=== PATIENT | female | born 1960 | race Caucasian/White ===

== ENCOUNTER 2019-03-01 19:10 | Inpatient (IN) ==
[2019-03-01 19:42] LABS: Basophils % 0.5 % (0.0-0.8); Eosinophils # 0.2 10*3/uL (0.0-0.87); Eosinophils % 3.3 % (0.00-10.9); Hematocrit 36.3 VOL% (35.7-47.0); Hemoglobin 11.4 GM/DL (12.0-16.0); Immature Granulocytes % 0.6 %; Immature Granulocytes Absolute 0.04 #; Lymphocytes # 1.8 10*3/uL (1.4-4.0); Lymphocytes % 27.5 % (21.3-54.2); Mean Corpuscular HGB Conc 31.4 GM/DL (32-36); Mean Corpuscular Volume 82.9 FL (87-102); Mean Platelet Volume 11.2 FL (9.6-12.0); Monocytes % 8.7 % (1.7-12.7); Neutrophils % 59.4 % (38.7-73.9); Platelet Count 252 T/CUMM (130-400); Red Blood Count 4.38 MC/CUMM (3.8-5.5); Red Cell Distribution Width 13.3 % (9.3-17.3); White Blood Count 6.6 T/CUMM (4-12)
[2019-03-01] MEDS ORDERED: ALBUTEROL/IPRATROPIUM 3 ML NEB RESP TX STA (19:43)
[2019-03-01] MEDS ORDERED: methylPREDNISolone SOD SUC 125 MG/2 ML VIAL IV STA (19:43)
[2019-03-01] MEDS ORDERED: ONDANSETRON 4 MG/2 ML VIAL IV STA (19:43)
[2019-03-01] MEDS ORDERED: ORPHENADRINE 60 MG/2 ML VIAL IV STA (19:43)
[2019-03-01 19:50] LABS: INR 1.1; PT Patient Result 12.4 SECS (9.6-12.2); Partial Thromboplastin Time 26.1 SECS (20.8-36.0)
[2019-03-01 19:51] LABS: Alanine Aminotransferase 32 U/L (13-56); Albumin 3.8 G/DL (3.4-5.0); Alkaline Phosphatase 142 U/L (45-117); Aspartate Amino Transferase 39 U/L (0-37); Bilirubin,Total < 0.39 MG/DL (0.2-1.0); Blood Urea Nitrogen 15 MG/DL (7-18); Calcium 9.1 MG/DL (8.5-10.1); Estimated Glom Filtration Rate 38 ML/MIN; Glucose 106 MG/DL (74-106); Osmolality,Calculated 270.1 MOS/KG (273-304); Total Protein 7.4 G/DL (6.4-8.3)
[2019-03-01 20:08] LABS: Troponin I 0.026 NG/ML (0.00-0.045)
[2019-03-01] MEDS ORDERED: ALBUTEROL/IPRATROPIUM 3 ML NEB RESP TX PRN (21:54)
[2019-03-01] MEDS: ENOXAPARIN 40 MG/0.4 ML SYRINGE SUBCUT SCH (23:54)
[2019-03-02 02:24] LABS: Bilirubin,Urine Negative (Negative); Blood, Urine NEGATIVE (Negative); Glucose,Urine (UA) Negative (Negative); Ketones,Urine Negative (Negative); Nitrite,Urine Negative (Negative); Protein,Urine Negative; RBC,Urine <1 /HPF (0-4); Squamous Epithelial Cell,Urine Occasional /HPF (0-10); Urine Color Yellow (Yellow); Urine Specific Gravity 1.005 (1.001-1.035); WBC,Urine <1 /HPF (0-6)
[2019-03-02 02:26] LABS: Apearance,Urine Clear (Clear); Urine Urobilinogen 0.2 EU/DL (0.2-1.0)
[2019-03-02 02:27] LABS: Barbiturates Screen,Urine Negative (Negative); Benzodiazepines Screen,Urine Positive (Negative); Cannabinoid Screen,Urine Negative (Negative); Opiate Screen,Urine Negative (Negative); Phencyclidine Screen,Urine Negative (Negative)
[2019-03-02 04:05] LABS: ABG Base Excess -2.7 MMOL/L (-2.5-2.5); ABG HCO3 21.4 MMOL/L (20-26); ABG Oxygen Saturation 53.6 % (95-100); ABG PH 7.359 (7.35-7.45); ABG TCO2 20.5 MMOL/L (23-27); Allen Test Positive
[2019-03-02 04:08] LABS: ABG PO2 31.6 MM HG (80-95)
[2019-03-02 04:20] LABS: Basophils % 0.1 % (0.0-0.8); Eosinophils % 0.2 % (0.00-10.9); Hematocrit 34.4 VOL% (35.7-47.0); Hemoglobin 10.7 GM/DL (12.0-16.0); Immature Granulocytes % 0.7 %; Immature Granulocytes Absolute 0.06 #; Lymphocytes # 1.4 10*3/uL (1.4-4.0); Lymphocytes % 17.4 % (21.3-54.2); Mean Corpuscular HGB Conc 31.1 GM/DL (32-36); Mean Corpuscular Volume 83.7 FL (87-102); Mean Platelet Volume 11.1 FL (9.6-12.0); Monocytes % 1.1 % (1.7-12.7); Neutrophils % 80.5 % (38.7-73.9); Platelet Count 257 T/CUMM (130-400); Red Blood Count 4.11 MC/CUMM (3.8-5.5); Red Cell Distribution Width 13.4 % (9.3-17.3); White Blood Count 8.1 T/CUMM (4-12)
[2019-03-02 04:44] LABS: Osmolality,Calculated 272.2 MOS/KG (273-304)
[2019-03-02 05:21] LABS: ABG Base Excess -4.1 MMOL/L (-2.5-2.5); ABG Oxygen Saturation 95.9 % (95-100); ABG PCO2 32.6 MM HG (35-48); ABG PH 7.395 (7.35-7.45); ABG PO2 80.5 MM HG (80-95); ABG TCO2 17.9 MMOL/L (23-27); Allen Test Positive; Pt O2 Delivery Device Other
[2019-03-02] MEDS: ONDANSETRON 4 MG/2 ML VIAL IV PRN (06:42)
[2019-03-02] MEDS: DIAZEPAM 5 MG TABLET PO PRN ×3 (06:47→21:28)
[2019-03-02 07:52] LABS: Allen Test Positive; Pt O2 Delivery Device Other
[2019-03-02 07:53] LABS: ABG Base Excess -3.2 MMOL/L (-2.5-2.5); ABG HCO3 20.7 MMOL/L (20-26); ABG Oxygen Saturation 95.1 % (95-100); ABG PCO2 33.2 MM HG (35-48); ABG PH 7.413 (7.35-7.45); ABG PO2 76.9 MM HG (80-95); ABG TCO2 21.7 MMOL/L (23-27)
[2019-03-02] MEDS ORDERED: predniSONE 20 MG TABLET PO SCH (09:00)
[2019-03-02] MEDS: PANTOPRAZOLE 40 MG TABLET PO SCH (09:14)
[2019-03-02] MEDS ORDERED: ALBUTEROL/IPRATROPIUM 3 ML NEB RESP TX PRN (09:18)
[2019-03-02] MEDS ORDERED: FUROSEMIDE 40 MG/4 ML VIAL IV ONE (09:30)
[2019-03-02] MEDS: CARISOPRODOL 350 MG TABLET PO SCH ×2 (10:02→22:02)
[2019-03-02] MEDS: LEVOFLOXACIN 750 MG TABLET PO SCH (10:43)
[2019-03-02] MEDS: MONTELUKAST 10 MG TABLET PO SCH (10:43)
[2019-03-02] MEDS: methylPREDNISolone SOD SUC 40 MG/1 ML VIAL IV SCH ×3 (10:44→21:26)
[2019-03-02] MEDS: BUDESONIDE 0.5 MG/2 ML NEB RESP TX SCH ×2 (11:32→19:22)
[2019-03-02] MEDS: ALBUTEROL/IPRATROPIUM 3 ML NEB RESP TX SCH ×4 (11:32→23:40)
[2019-03-02] MEDS: ARFORMOTEROL 15 MCG/2 ML NEB RESP TX SCH ×2 (11:42→19:22)
[2019-03-02] MEDS: SUBOXONE FILM SL SCH (11:56)
[2019-03-02] MEDS ORDERED: SUBOXONE FILM SL SCH (12:00)
[2019-03-02] MEDS: ACETAMINOPHEN 325 MG TABLET PO PRN (14:29)
[2019-03-02] MEDS: ENOXAPARIN 40 MG/0.4 ML SYRINGE SUBCUT SCH (21:29)
[2019-03-03] MEDS: ALBUTEROL/IPRATROPIUM 3 ML NEB RESP TX SCH ×6 (03:14→23:51)
[2019-03-03] MEDS: methylPREDNISolone SOD SUC 40 MG/1 ML VIAL IV SCH (03:16)
[2019-03-03] MEDS: BUDESONIDE 0.5 MG/2 ML NEB RESP TX SCH ×2 (07:09→19:53)
[2019-03-03] MEDS: ARFORMOTEROL 15 MCG/2 ML NEB RESP TX SCH ×2 (07:21→19:52)
[2019-03-03] MEDS: PANTOPRAZOLE 40 MG TABLET PO SCH (08:48)
[2019-03-03] MEDS: SUBOXONE FILM SL SCH (08:48)
[2019-03-03] MEDS: DIAZEPAM 5 MG TABLET PO PRN ×3 (08:49→20:22)
[2019-03-03] MEDS: MONTELUKAST 10 MG TABLET PO SCH (08:49)
[2019-03-03] MEDS ORDERED: methylPREDNISolone SOD SUC 40 MG/1 ML VIAL IV SCH (09:00)
[2019-03-03] MEDS: CARISOPRODOL 350 MG TABLET PO SCH ×2 (10:15→21:05)
[2019-03-03] MEDS: predniSONE 20 MG TABLET PO SCH (11:45)
[2019-03-03] MEDS ORDERED: DILTIAZEM 30 MG TABLET PO SCH (13:38)
[2019-03-03] MEDS: ASPIRIN EC 81 MG TABLET PO SCH (14:14)
[2019-03-03] MEDS: ACETAMINOPHEN 325 MG TABLET PO PRN (14:14)
[2019-03-03] MEDS: amLODIPine 2.5 MG TABLET PO SCH (14:14)
[2019-03-03 16:27] LABS: Troponin I 0.078 NG/ML (0.00-0.045)
[2019-03-03] MEDS: ENOXAPARIN 40 MG/0.4 ML SYRINGE SUBCUT SCH (20:23)
[2019-03-03] MEDS: SUBOXONE FILM SL PRN (21:31)
[2019-03-04] MEDS: ACETAMINOPHEN 325 MG TABLET PO PRN (02:07)
[2019-03-04] MEDS: ALBUTEROL/IPRATROPIUM 3 ML NEB RESP TX SCH ×6 (03:44→23:48)
[2019-03-04 05:45] LABS: Basophils % 0.1 % (0.0-0.8); Immature Granulocytes % 1.2 %; Immature Granulocytes Absolute 0.22 #; Lymphocytes % 10.4 % (21.3-54.2); Mean Corpuscular HGB Conc 31.3 GM/DL (32-36); Mean Corpuscular Volume 83.8 FL (87-102); Mean Platelet Volume 11.8 FL (9.6-12.0); Monocytes % 6.3 % (1.7-12.7); Platelet Count 244 T/CUMM (130-400); Red Blood Count 3.82 MC/CUMM (3.8-5.5); Red Cell Distribution Width 13.8 % (9.3-17.3); White Blood Count 18.8 T/CUMM (4-12)
[2019-03-04 06:04] LABS: Calcium 8.9 MG/DL (8.5-10.1); Osmolality,Calculated 274.1 MOS/KG (273-304)
[2019-03-04 06:12] LABS: Risk Ratio 4.68
[2019-03-04] MEDS: ARFORMOTEROL 15 MCG/2 ML NEB RESP TX SCH ×2 (07:28→19:27)
[2019-03-04] MEDS: BUDESONIDE 0.5 MG/2 ML NEB RESP TX SCH ×2 (07:28→19:17)
[2019-03-04] MEDS ORDERED: methylPREDNISolone SOD SUC 40 MG/1 ML VIAL IV SCH (09:00)
[2019-03-04] MEDS: PANTOPRAZOLE 40 MG TABLET PO SCH (09:23)
[2019-03-04] MEDS: ASPIRIN EC 81 MG TABLET PO SCH (09:23)
[2019-03-04] MEDS: LEVOFLOXACIN 750 MG TABLET PO SCH (09:23)
[2019-03-04] MEDS: amLODIPine 2.5 MG TABLET PO SCH (09:23)
[2019-03-04] MEDS: MONTELUKAST 10 MG TABLET PO SCH (09:23)
[2019-03-04] MEDS: predniSONE 20 MG TABLET PO SCH (09:23)
[2019-03-04] MEDS: CARISOPRODOL 350 MG TABLET PO SCH ×2 (09:24→22:31)
[2019-03-04] MEDS: DIAZEPAM 5 MG TABLET PO PRN ×2 (09:29→17:20)
[2019-03-04] MEDS: SUBOXONE FILM SL SCH (09:30)
[2019-03-04 11:34] LABS: % Iron Saturation 3.2 % (18-50)
[2019-03-04 11:44] LABS: Folate 3.5 NG/ML (5.4-24.0)
[2019-03-04] MEDS: ONDANSETRON 4 MG/2 ML VIAL IV PRN (13:48)
[2019-03-04] MEDS: SUBOXONE FILM SL PRN (22:23)
[2019-03-04] MEDS: ENOXAPARIN 40 MG/0.4 ML SYRINGE SUBCUT SCH (22:25)
[2019-03-05] MEDS: DIAZEPAM 5 MG TABLET PO PRN ×3 (04:07→19:24)
[2019-03-05] MEDS: ALBUTEROL/IPRATROPIUM 3 ML NEB RESP TX SCH ×2 (04:29→07:54)
[2019-03-05] MEDS: BUDESONIDE 0.5 MG/2 ML NEB RESP TX SCH ×2 (07:54→19:37)
[2019-03-05] MEDS: ARFORMOTEROL 15 MCG/2 ML NEB RESP TX SCH ×2 (07:54→19:34)
[2019-03-05] MEDS: amLODIPine 2.5 MG TABLET PO SCH (08:57)
[2019-03-05] MEDS: ASPIRIN EC 81 MG TABLET PO SCH (08:57)
[2019-03-05] MEDS: MONTELUKAST 10 MG TABLET PO SCH (08:57)
[2019-03-05] MEDS: predniSONE 20 MG TABLET PO SCH (08:57)
[2019-03-05] MEDS: PANTOPRAZOLE 40 MG TABLET PO SCH (08:57)
[2019-03-05] MEDS: CARISOPRODOL 350 MG TABLET PO SCH ×2 (09:10→20:19)
[2019-03-05] MEDS: SUBOXONE FILM SL SCH (09:25)
[2019-03-05] MEDS: ACETAMINOPHEN 325 MG TABLET PO PRN (09:32)
[2019-03-05] MEDS: ONDANSETRON 4 MG/2 ML VIAL IV PRN ×2 (09:44→19:22)
[2019-03-05] MEDS: FLUTICASONE 50 MCG NASAL SPRAY 16 GM BOTTLE BOTH NARES SCH ×2 (13:06→20:59)
[2019-03-05] MEDS: POLYETHYLENE GLYCOL POWDER 17 GM PACK PO SCH (13:07)
[2019-03-05] MEDS: DOCUSATE SODIUM 100 MG CAPSULE PO SCH ×2 (13:07→20:59)
[2019-03-05] MEDS: FLUoxetine 20 MG CAPSULE PO SCH (15:05)
[2019-03-05] MEDS ORDERED: ALBUTEROL/IPRATROPIUM 3 ML NEB RESP TX PRN (17:35)
[2019-03-05] MEDS: ENOXAPARIN 40 MG/0.4 ML SYRINGE SUBCUT SCH (20:59)
[2019-03-05] MEDS: SUBOXONE FILM SL PRN (20:59)
[2019-03-06] MEDS: ONDANSETRON 4 MG/2 ML VIAL IV PRN (06:36)
[2019-03-06] MEDS: ARFORMOTEROL 15 MCG/2 ML NEB RESP TX SCH (07:28)
[2019-03-06] MEDS: BUDESONIDE 0.5 MG/2 ML NEB RESP TX SCH (07:28)
[2019-03-06 07:39] VITALS: BP 105/55
[2019-03-06 07:52] LABS: Basophils % 0.2 % (0.0-0.8); Eosinophils # 0.1 10*3/uL (0.0-0.87); Eosinophils % 0.5 % (0.00-10.9); Hematocrit 36.7 VOL% (35.7-47.0); Hemoglobin 11.1 GM/DL (12.0-16.0); Immature Granulocytes % 1.2 %; Immature Granulocytes Absolute 0.15 #; Lymphocytes # 4.2 10*3/uL (1.4-4.0); Lymphocytes % 33.7 % (21.3-54.2); Mean Corpuscular HGB Conc 30.2 GM/DL (32-36); Mean Corpuscular Volume 84.6 FL (87-102); Mean Platelet Volume 11.4 FL (9.6-12.0); Neutrophils % 56.4 % (38.7-73.9); Platelet Count 238 T/CUMM (130-400); Red Blood Count 4.34 MC/CUMM (3.8-5.5); Red Cell Distribution Width 14.1 % (9.3-17.3); White Blood Count 12.6 T/CUMM (4-12)
[2019-03-06 08:08] LABS: Calcium 8.6 MG/DL (8.5-10.1); Osmolality,Calculated 276.7 MOS/KG (273-304)
[2019-03-06] MEDS: DIAZEPAM 5 MG TABLET PO PRN (09:00)
[2019-03-06] MEDS: FLUTICASONE 50 MCG NASAL SPRAY 16 GM BOTTLE BOTH NARES SCH (09:00)
[2019-03-06] MEDS ORDERED: OXYMETAZOLINE 0.05% NASAL SPRAY 15 ML BOTTLE BOTH NARES SCH (09:00)
[2019-03-06] MEDS: PANTOPRAZOLE 40 MG TABLET PO SCH (09:01)
[2019-03-06] MEDS: MONTELUKAST 10 MG TABLET PO SCH (09:01)
[2019-03-06] MEDS: DOCUSATE SODIUM 100 MG CAPSULE PO SCH (09:01)
[2019-03-06] MEDS: predniSONE 20 MG TABLET PO SCH (09:01)
[2019-03-06] MEDS: ASPIRIN EC 81 MG TABLET PO SCH (09:01)
[2019-03-06] MEDS: FLUoxetine 20 MG CAPSULE PO SCH (09:01)
[2019-03-06] MEDS: amLODIPine 2.5 MG TABLET PO SCH (09:01)
[2019-03-06] MEDS: LEVOFLOXACIN 750 MG TABLET PO SCH (09:01)
[2019-03-06] MEDS: SUBOXONE FILM SL SCH (09:02)
[2019-03-06] MEDS: POLYETHYLENE GLYCOL POWDER 17 GM PACK PO SCH (09:08)
[2019-03-06] MEDS: CARISOPRODOL 350 MG TABLET PO SCH (09:11)
== END 2019-03-06 11:39 | disposition swing bed (61) | DRG 189 ==
LOC: EDBD → EDUNIT# → N.ED 19:10 → SUATTDRO 21:49 → N.EDINP 21:49 → N.2E 22:37
PROVIDERS: ADMIT Internal Medicine; ATTEND Hospitalist

== ENCOUNTER 2019-04-05 20:02 | Inpatient (IN) ==
[2019-04-05] MEDS ORDERED: methylPREDNISolone SOD SUC 125 MG/2 ML VIAL IV STA (20:35)
[2019-04-05] MEDS ORDERED: ONDANSETRON 4 MG/2 ML VIAL IV STA (20:35)
[2019-04-05] MEDS ORDERED: SODIUM CHLORIDE 0.9% 500 ML IV STA (20:35)
[2019-04-05 20:59] LABS: Basophils % 0.2 % (0.0-0.8); Eosinophils # 0.1 10*3/uL (0.0-0.87); Eosinophils % 2.4 % (0.00-10.9); Hematocrit 35.8 VOL% (35.7-47.0); Hemoglobin 11.3 GM/DL (12.0-16.0); Immature Granulocytes % 0.5 %; Immature Granulocytes Absolute 0.03 #; Lymphocytes # 2.3 10*3/uL (1.4-4.0); Lymphocytes % 38.8 % (21.3-54.2); Mean Corpuscular HGB Conc 31.6 GM/DL (32-36); Mean Corpuscular Volume 79.6 FL (87-102); Mean Platelet Volume 11.4 FL (9.6-12.0); Monocytes % 9.1 % (1.7-12.7); Platelet Count 196 T/CUMM (130-400); Red Cell Distribution Width 15.8 % (9.3-17.3); White Blood Count 5.8 T/CUMM (4-12)
[2019-04-05] MEDS ORDERED: ALBUTEROL NEB SOLN 5 MG/ML 20 ML/BOTTLE RESP TX SCH (21:00)
[2019-04-05 21:08] LABS: ABG Base Excess -3.3 MMOL/L (-2.5-2.5); ABG HCO3 18.7 MMOL/L (20-26); ABG Oxygen Saturation 78.1 % (95-100); ABG PCO2 24.9 MM HG (35-48); ABG PH 7.494 (7.35-7.45); ABG PO2 44.1 MM HG (80-95); ABG TCO2 19.5 MMOL/L (23-27)
[2019-04-05 21:12] LABS: Albumin 2.9 G/DL (3.4-5.0); Bilirubin,Total 0.4 MG/DL (0.2-1.0); Calcium 7.7 MG/DL (8.5-10.1); Osmolality,Calculated 262.7 MOS/KG (273-304); Total Protein 6.1 G/DL (6.4-8.3)
[2019-04-05 21:13] LABS: PT Patient Result 21.3 SECS (9.6-12.2)
[2019-04-05] MEDS ORDERED: MAGNESIUM SULF RIDER 2 GM in PREMIX 1 EACH IV STA (21:19)
[2019-04-05] MEDS ORDERED: POTASSIUM CHLORIDE 20 MEQ TABLET PO STA (21:19)
[2019-04-05] MEDS ORDERED: FUROSEMIDE 40 MG/4 ML VIAL IV STA (21:39)
[2019-04-05 23:26] LABS: ABG HCO3 21.6 MMOL/L (20-26); ABG Oxygen Saturation 80.9 % (95-100); ABG PCO2 32.1 MM HG (35-48); ABG PH 7.417 (7.35-7.45); ABG PO2 47.3 MM HG (80-95); ABG TCO2 18.5 MMOL/L (23-27)
[2019-04-06] MEDS ORDERED: ALBUTEROL 2.5 MG/3 ML NEB RESP TX PRN (00:12)
[2019-04-06] MEDS ORDERED: CEFEPIME 1,000 MG in SODIUM CHLORIDE 0.9% 100 ML IV SCH (00:30)
[2019-04-06] MEDS: CEFEPIME 1,000 MG in SODIUM CHLORIDE 0.9% 100 ML IV SCH ×3 (01:19→16:16)
[2019-04-06] MEDS: ALBUTEROL/IPRATROPIUM 3 ML NEB RESP TX SCH ×11 (01:45→22:12)
[2019-04-06 02:55] LABS: Apearance,Urine CLEAR (Clear); Bacteria,Urine Occasional /HPF (Few); Bilirubin,Urine Negative (Negative); Blood, Urine Negative (Negative); Glucose,Urine (UA) Negative (Negative); Hyaline Casts,Urine 5 /LPF (0-3); Ketones,Urine Negative (Negative); Mucus,Urine Occasional /LPF (Occasional); Nitrite,Urine Negative (Negative); Protein,Urine Negative; RBC,Urine 1 /HPF (0-4); Urine Color Colorless (Yellow); Urine Specific Gravity 1.005 (1.001-1.035); Urine Urobilinogen < 2.0 EU/DL (0.2-1.0); WBC,Urine <1 /HPF (0-6)
[2019-04-06] MEDS: methylPREDNISolone SOD SUC 40 MG/1 ML VIAL IV SCH ×4 (03:04→21:21)
[2019-04-06 03:17] LABS: Barbiturates Screen,Urine Negative (Negative); Benzodiazepines Screen,Urine Positive (Negative); Cannabinoid Screen,Urine Negative (Negative); Opiate Screen,Urine Negative (Negative); Phencyclidine Screen,Urine Negative (Negative)
[2019-04-06 07:18] LABS: Alanine Aminotransferase 17 U/L (13-56); Alkaline Phosphatase 90 U/L (45-117); Aspartate Amino Transferase 23 U/L (0-37); Bilirubin,Total < 0.39 MG/DL (0.2-1.0); Blood Urea Nitrogen 15 MG/DL (7-18); Calcium 8.5 MG/DL (8.5-10.1); Estimated Glom Filtration Rate 37 ML/MIN; Glucose 148 MG/DL (74-106); Osmolality,Calculated 267.5 MOS/KG (273-304); Total Protein 7.1 G/DL (6.4-8.3)
[2019-04-06 07:41] LABS: ABG Base Excess -4.4 MMOL/L (-2.5-2.5); ABG HCO3 20.4 MMOL/L (20-26); ABG Oxygen Saturation 81.1 % (95-100); ABG PCO2 32.9 MM HG (35-48); ABG PH 7.386 (7.35-7.45); ABG PO2 48.3 MM HG (80-95); ABG TCO2 17.6 MMOL/L (23-27); Pt O2 Delivery Device BIPAP
[2019-04-06 08:37] LABS: Hematocrit 38.5 VOL% (35.7-47.0); Hemoglobin 11.8 GM/DL (12.0-16.0); Immature Granulocytes % 0.6 %; Immature Granulocytes Absolute 0.02 #; Lymphocytes # 0.6 10*3/uL (1.4-4.0); Lymphocytes % 18.8 % (21.3-54.2); Mean Corpuscular HGB Conc 30.6 GM/DL (32-36); Mean Corpuscular Volume 81.7 FL (87-102); Mean Platelet Volume 11.2 FL (9.6-12.0); Monocytes % 2.1 % (1.7-12.7); Neutrophils % 78.5 % (38.7-73.9); Platelet Count 225 T/CUMM (130-400); Red Blood Count 4.71 MC/CUMM (3.8-5.5); Red Cell Distribution Width 15.9 % (9.3-17.3); White Blood Count 3.4 T/CUMM (4-12)
[2019-04-06] MEDS: PANTOPRAZOLE 40 MG TABLET PO SCH (09:20)
[2019-04-06] MEDS: ENOXAPARIN 40 MG/0.4 ML SYRINGE SUBCUT SCH (09:20)
[2019-04-06] MEDS ORDERED: GABAPENTIN 300 MG CAPSULE PO PRN (09:55)
[2019-04-06] MEDS ORDERED: CYCLOBENZAPRINE 10 MG TABLET PO PRN (09:55)
[2019-04-06] MEDS ORDERED: BUPRENORPHINE NALOXONE SL SCH ×2 (10:00→14:00)
[2019-04-06 11:24] LABS: Folate 5.9 NG/ML (5.4-24.0)
[2019-04-06 11:28] LABS: % Iron Saturation 2.8 % (18-50)
[2019-04-06 11:42] LABS: Thyroid Stimulating Hormone 0.59 uIU/ml (0.358-3.74)
[2019-04-06] MEDS: BUPRENORPHINE NALOXONE SL SCH ×2 (14:29→21:20)
[2019-04-06] MEDS: MONTELUKAST 10 MG TABLET PO SCH (14:36)
[2019-04-06] MEDS: DIAZEPAM 5 MG TABLET PO SCH ×2 (14:36→21:21)
[2019-04-06] MEDS: FLUoxetine 20 MG CAPSULE PO SCH (14:37)
[2019-04-06] MEDS: ONDANSETRON 4 MG/2 ML VIAL IV PRN (16:15)
[2019-04-06] MEDS ORDERED: ALUMINUM/MAGNES/SIMETH MAX STR 30 ML UDCUP PO PRN (16:48)
[2019-04-06] MEDS: BUDESONIDE 0.5 MG/2 ML NEB RESP TX SCH (19:21)
[2019-04-06] MEDS: DOCUSATE SODIUM 100 MG CAPSULE PO SCH (21:21)
[2019-04-06] MEDS: OXYMETAZOLINE 0.05% NASAL SPRAY 15 ML BOTTLE BOTH NARES SCH (21:21)
[2019-04-06] MEDS: FLUTICASONE 50 MCG NASAL SPRAY 16 GM BOTTLE BOTH NARES SCH (21:21)
[2019-04-06] MEDS: PARoxetine 20 MG TABLET PO SCH (21:21)
[2019-04-07] MEDS: CEFEPIME 1,000 MG in SODIUM CHLORIDE 0.9% 100 ML IV SCH ×3 (00:52→16:26)
[2019-04-07] MEDS: ALBUTEROL/IPRATROPIUM 3 ML NEB RESP TX SCH ×8 (01:17→19:19)
[2019-04-07] MEDS: methylPREDNISolone SOD SUC 40 MG/1 ML VIAL IV SCH ×4 (03:16→21:03)
[2019-04-07 03:40] LABS: ABG Base Excess -1.9 MMOL/L (-2.5-2.5); ABG HCO3 22.4 MMOL/L (20-26); ABG Oxygen Saturation 76.7 % (95-100); ABG PCO2 39.8 MM HG (35-48); ABG PH 7.372 (7.35-7.45); ABG PO2 42.8 MM HG (80-95); ABG TCO2 20.8 MMOL/L (23-27); Allen Test Positive; Pt O2 Delivery Device Other
[2019-04-07 05:03] LABS: Basophils % 0.1 % (0.0-0.8); Hematocrit 35.2 VOL% (35.7-47.0); Hemoglobin 10.8 GM/DL (12.0-16.0); Immature Granulocytes % 0.5 %; Immature Granulocytes Absolute 0.06 #; Lymphocytes % 7.8 % (21.3-54.2); Mean Corpuscular HGB Conc 30.7 GM/DL (32-36); Mean Corpuscular Volume 80.2 FL (87-102); Mean Platelet Volume 11.9 FL (9.6-12.0); Monocytes % 3.1 % (1.7-12.7); Neutrophils % 88.5 % (38.7-73.9); Platelet Count 249 T/CUMM (130-400); Red Blood Count 4.39 MC/CUMM (3.8-5.5); White Blood Count 12.4 T/CUMM (4-12)
[2019-04-07 05:25] LABS: Albumin 3.3 G/DL (3.4-5.0); Bilirubin,Total 0.9 MG/DL (0.2-1.0); Calcium 8.9 MG/DL (8.5-10.1); Osmolality,Calculated 269.5 MOS/KG (273-304)
[2019-04-07 05:26] LABS: INR 1.2; PT Patient Result 13.4 SECS (9.6-12.2)
[2019-04-07] MEDS: BUDESONIDE 0.5 MG/2 ML NEB RESP TX SCH ×2 (06:55→19:19)
[2019-04-07] MEDS ORDERED: amLODIPine 2.5 MG TABLET PO SCH (09:00)
[2019-04-07] MEDS ORDERED: ALBUTEROL/IPRATROPIUM 3 ML NEB RESP TX PRN (09:26)
[2019-04-07] MEDS: OXYMETAZOLINE 0.05% NASAL SPRAY 15 ML BOTTLE BOTH NARES SCH ×2 (10:50→21:01)
[2019-04-07] MEDS: ENOXAPARIN 40 MG/0.4 ML SYRINGE SUBCUT SCH (10:50)
[2019-04-07] MEDS: BUPRENORPHINE NALOXONE SL SCH ×2 (10:50→21:02)
[2019-04-07] MEDS: PANTOPRAZOLE 40 MG TABLET PO SCH (10:51)
[2019-04-07] MEDS: FLUTICASONE 50 MCG NASAL SPRAY 16 GM BOTTLE BOTH NARES SCH ×2 (10:51→21:01)
[2019-04-07] MEDS: FLUoxetine 20 MG CAPSULE PO SCH (10:51)
[2019-04-07] MEDS: DIAZEPAM 5 MG TABLET PO SCH ×3 (10:51→21:03)
[2019-04-07] MEDS: MONTELUKAST 10 MG TABLET PO SCH (10:51)
[2019-04-07] MEDS: DOCUSATE SODIUM 100 MG CAPSULE PO SCH ×2 (11:02→21:02)
[2019-04-07] MEDS: POLYETHYLENE GLYCOL POWDER 17 GM PACK PO SCH (11:02)
[2019-04-07] MEDS: FERROUS SULFATE 325 MG TABLET PO SCH ×2 (11:06→21:02)
[2019-04-07] MEDS: FOLIC ACID 0.4 MG TABLET PO SCH (11:06)
[2019-04-07] MEDS: amLODIPine 5 MG TABLET PO SCH (11:06)
[2019-04-07] MEDS: PARoxetine 20 MG TABLET PO SCH (21:02)
[2019-04-08] MEDS: CEFEPIME 1,000 MG in SODIUM CHLORIDE 0.9% 100 ML IV SCH ×4 (00:44→23:15)
[2019-04-08] MEDS: methylPREDNISolone SOD SUC 40 MG/1 ML VIAL IV SCH ×4 (03:25→22:32)
[2019-04-08 04:17] LABS: Allen Test Positive; Pt O2 Delivery Device Other
[2019-04-08 04:18] LABS: ABG Base Excess -0.5 MMOL/L (-2.5-2.5); ABG HCO3 23.8 MMOL/L (20-26); ABG Oxygen Saturation 68.5 % (95-100); ABG PCO2 37.7 MM HG (35-48); ABG PH 7.418 (7.35-7.45)
[2019-04-08 04:21] LABS: ABG PO2 37.7 MM HG (80-95)
[2019-04-08 06:25] LABS: INR 1.1; PT Patient Result 12.1 SECS (9.6-12.2)
[2019-04-08 06:31] LABS: Basophils % 0.1 % (0.0-0.8); Hematocrit 34.5 VOL% (35.7-47.0); Hemoglobin 10.6 GM/DL (12.0-16.0); Immature Granulocytes % 0.9 %; Immature Granulocytes Absolute 0.13 #; Lymphocytes % 6.6 % (21.3-54.2); Mean Corpuscular HGB Conc 30.7 GM/DL (32-36); Mean Corpuscular Volume 81.2 FL (87-102); Mean Platelet Volume 11.8 FL (9.6-12.0); Monocytes % 4.1 % (1.7-12.7); NRBC # 0.04 10*3/uL; Neutrophils % 88.3 % (38.7-73.9); Platelet Count 257 T/CUMM (130-400); Red Blood Count 4.25 MC/CUMM (3.8-5.5); Red Cell Distribution Width 16.4 % (9.3-17.3); White Blood Count 14.9 T/CUMM (4-12)
[2019-04-08 06:54] LABS: Albumin 3.1 G/DL (3.4-5.0); Bilirubin,Total 0.4 MG/DL (0.2-1.0); Calcium 8.6 MG/DL (8.5-10.1); Osmolality,Calculated 279.7 MOS/KG (273-304); Total Protein 6.6 G/DL (6.4-8.3)
[2019-04-08] MEDS: ALBUTEROL/IPRATROPIUM 3 ML NEB RESP TX SCH ×3 (07:03→20:02)
[2019-04-08] MEDS: BUDESONIDE 0.5 MG/2 ML NEB RESP TX SCH ×2 (07:03→20:02)
[2019-04-08] MEDS: FERROUS SULFATE 325 MG TABLET PO SCH ×2 (08:27→22:32)
[2019-04-08] MEDS: FOLIC ACID 0.4 MG TABLET PO SCH (08:27)
[2019-04-08] MEDS: MONTELUKAST 10 MG TABLET PO SCH (08:27)
[2019-04-08] MEDS: ENOXAPARIN 40 MG/0.4 ML SYRINGE SUBCUT SCH (08:27)
[2019-04-08] MEDS: PANTOPRAZOLE 40 MG TABLET PO SCH (08:28)
[2019-04-08] MEDS: FLUoxetine 20 MG CAPSULE PO SCH (08:28)
[2019-04-08] MEDS: DIAZEPAM 5 MG TABLET PO SCH ×3 (08:28→22:33)
[2019-04-08] MEDS: DOCUSATE SODIUM 100 MG CAPSULE PO SCH ×2 (08:35→22:32)
[2019-04-08] MEDS: POLYETHYLENE GLYCOL POWDER 17 GM PACK PO SCH (08:36)
[2019-04-08] MEDS: FLUTICASONE 50 MCG NASAL SPRAY 16 GM BOTTLE BOTH NARES SCH ×2 (08:38→22:33)
[2019-04-08] MEDS: OXYMETAZOLINE 0.05% NASAL SPRAY 15 ML BOTTLE BOTH NARES SCH ×2 (08:39→22:31)
[2019-04-08] MEDS ORDERED: FUROSEMIDE 20 MG/2 ML VIAL IV ONE (09:39)
[2019-04-08] MEDS: BUPRENORPHINE SL TAB 2 MG TABLET SL SCH ×3 (11:01→22:34)
[2019-04-08] MEDS: amLODIPine 5 MG TABLET PO SCH (11:04)
[2019-04-08] MEDS: ASPIRIN EC 81 MG TABLET PO SCH (11:17)
[2019-04-08] MEDS: PARoxetine 20 MG TABLET PO SCH (22:33)
[2019-04-09 04:39] LABS: ABG HCO3 23.2 MMOL/L (20-26); ABG Oxygen Saturation 78.4 % (95-100); ABG PCO2 33.3 MM HG (35-48); ABG PH 7.439 (7.35-7.45); ABG TCO2 20.4 MMOL/L (23-27); Allen Test Positive; Pt O2 Delivery Device Other
[2019-04-09 04:52] LABS: Basophils % 0.1 % (0.0-0.8); Hemoglobin 10.9 GM/DL (12.0-16.0); Immature Granulocytes % 1.5 %; Immature Granulocytes Absolute 0.23 #; Lymphocytes # 1.3 10*3/uL (1.4-4.0); Lymphocytes % 8.7 % (21.3-54.2); Mean Corpuscular HGB Conc 30.3 GM/DL (32-36); Mean Corpuscular Volume 82.2 FL (87-102); Mean Platelet Volume 11.7 FL (9.6-12.0); Monocytes % 3.5 % (1.7-12.7); NRBC # 0.07 10*3/uL; Neutrophils % 86.2 % (38.7-73.9); Platelet Count 308 T/CUMM (130-400); Red Blood Count 4.38 MC/CUMM (3.8-5.5); Red Cell Distribution Width 16.5 % (9.3-17.3)
[2019-04-09 05:27] LABS: Calcium 9.5 MG/DL (8.5-10.1); Osmolality,Calculated 278.1 MOS/KG (273-304)
[2019-04-09] MEDS: methylPREDNISolone SOD SUC 40 MG/1 ML VIAL IV SCH ×3 (05:39→15:39)
[2019-04-09] MEDS: BUPRENORPHINE SL TAB 2 MG TABLET SL SCH ×2 (05:39→10:22)
[2019-04-09] MEDS: BUDESONIDE 0.5 MG/2 ML NEB RESP TX SCH (07:11)
[2019-04-09] MEDS: ALBUTEROL/IPRATROPIUM 3 ML NEB RESP TX SCH ×2 (07:11→12:03)
[2019-04-09] MEDS: DOCUSATE SODIUM 100 MG CAPSULE PO SCH (08:31)
[2019-04-09] MEDS: FLUoxetine 20 MG CAPSULE PO SCH (08:31)
[2019-04-09] MEDS: FERROUS SULFATE 325 MG TABLET PO SCH (08:31)
[2019-04-09] MEDS: FOLIC ACID 0.4 MG TABLET PO SCH (08:32)
[2019-04-09] MEDS: OXYMETAZOLINE 0.05% NASAL SPRAY 15 ML BOTTLE BOTH NARES SCH (08:32)
[2019-04-09] MEDS: FLUTICASONE 50 MCG NASAL SPRAY 16 GM BOTTLE BOTH NARES SCH (08:32)
[2019-04-09] MEDS: PANTOPRAZOLE 40 MG TABLET PO SCH (08:32)
[2019-04-09] MEDS: DIAZEPAM 5 MG TABLET PO SCH ×2 (08:32→15:43)
[2019-04-09] MEDS: ENOXAPARIN 40 MG/0.4 ML SYRINGE SUBCUT SCH (08:32)
[2019-04-09] MEDS: ASPIRIN EC 81 MG TABLET PO SCH (08:32)
[2019-04-09] MEDS: CEFEPIME 1,000 MG in SODIUM CHLORIDE 0.9% 100 ML IV SCH ×2 (09:25→15:43)
[2019-04-09] MEDS: POLYETHYLENE GLYCOL POWDER 17 GM PACK PO SCH (09:35)
[2019-04-09] MEDS: MONTELUKAST 10 MG TABLET PO SCH (09:35)
[2019-04-09] MEDS ORDERED: METOPROLOL TARTRATE 25 MG TABLET PO SCH (11:00)
[2019-04-09] MEDS ORDERED: AZITHROMYCIN 250 MG TABLET PO SCH (12:00)
[2019-04-09] MEDS ORDERED: POTASSIUM CHLORIDE 10 MEQ TABLET PO SCH (12:00)
[2019-04-09] MEDS: ONDANSETRON 4 MG/2 ML VIAL IV PRN (13:04)
[2019-04-09] MEDS ORDERED: FUROSEMIDE 40 MG/4 ML VIAL IV ONE (14:00)
[2019-04-09] MEDS ORDERED: FUROSEMIDE 40 MG/4 ML VIAL ONE (14:13)
[2019-04-09] MEDS ORDERED: FUROSEMIDE 40 MG/4 ML VIAL IV SCH ×2 (16:00→18:00)
[2019-04-09 16:15] VITALS: BP 117/70
== END 2019-04-09 16:40 | disposition hospice, home (50) | DRG 306 ==
LOC: EDUNIT# → EDBD → N.ED 20:02 → N.EDINP 04-06 00:12 → SUATTDRO 04-06 00:12 → N.ICU 04-06 00:41
PROVIDERS: ADMIT Internal Medicine; ATTEND Family Medicine